=== PATIENT | female | born 1950 | race African-American/Black ===

== ENCOUNTER 2017-01-02 07:34 | Emergency (ER) | payer BC ==
[~2017-01-02] VITALS: Ht 167.6 cm; Wt 85.0 kg
[~2017-01-02 07:34] MED LIST: ALPR0.5T6; ICNCLON; METO100T; NIFE90TA4
[2017-01-02 07:41] VITALS: Ht 167.6 cm; Wt 85.0 kg
--- NOTE | 2017-01-02 07:53 | ERD ---
ER Documentation Chief Complaint Date/Time DATE: 01/02/17 TIME: 07:52 Chief Complaint Complains of left finger pain with swelling x 3 days HPI 66-year-old female who presents to the emergency department for left index finger pain and swelling. Stated that she is not sure if she injured it. Stated that she recalled that she out all of her weight on it while she was sleeping 3 days ago. Denies headache, loss of consciousness, dizziness, blurry vision, changes in vision, photophobia, facial pain, ear pain, throat pain, difficulty swallowing, neck pain, shoulder pain, chest pain, cough, hemoptysis, abdominal pain, back pain, loss of appetite, nausea, vomiting, hematochezia, diarrhea, constipation, urinary symptoms, , the possibility of being , bladder and bowel incontinences, numbness or tingling sensation, insect bite, direct injury , direct trauma, difficulty walking, recent travel, recent exposure to illness, recent antibiotic use in the last 3 months, fever, chills. Allergy: No known drug allergies. PMH: Hypertension. Denies. Family medical history: Medications: Clonidine. Nifedipine. Surgery: . 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 Right-handed. Denies smoking, use of alcohol, use of illegal drugs. Not exposed to secondhand smoking. ROS All systems reviewed and are negative except as per history of present illness. Medications Home Meds Active Scripts Cephalexin* (Keflex*) 500 Mg Capsule, 500 MG PO TID for 5 Days, CAP Prov:EMILY BRYANT F 01/02/17 Tramadol HCl (Tramadol HCl) 50 Mg Tablet, 50 MG PO Q4 Y for PAIN, #15 TAB Prov:SEVEROILABANKLAR F 01/02/17 Reported Medications Nifedipine (Nifediac Cc) 90 Mg Tablet.sa 03/23/10 Metoprolol (Lopressor) 100 Mg Tablet 03/23/10 Clonidine (Clonidine (Pediatric Compound)) 0.1 Mg/Ml Susp 03/23/10 Alprazolam* (Alprazolam*) 0.5 Mg Tablet 03/23/10 Allergies Allergies: Coded Allergies: No Known Allergy (Verified , 11/18/09) PMhx/Soc History of Surgery: Yes (EYE SX) Anesthesia Reaction: No Hx Neurological Disorder: No Hx Respiratory Disorders: No Hx Cardiac Disorders: Yes (htn) Hx Psychiatric Problems: No Hx Miscellaneous Medical Probl: No Hx Alcohol Use: No Hx Substance Use: No Hx Tobacco Use: No Physical Exam Vitals Vital Signs Date Time Temp Pulse Resp B/P Pulse Ox O2 Delivery O2 Flow Rate FiO2 01/02/17 07:41 97.2 102 20 173/84 98 Physical Exam CONSTITUTIONAL: Well-appearing; well-nourished; in no apparent distress. HEAD: Normocephalic; atraumatic. EYES: Conjunctiva clear, sclera non-icteric, EOM intact. PERRL Ears: Hearing intact. EACs clear, TMs non-bulging, non-inflamed, translucent & mobile, ossicles normal appearance, No obstructions, no erythema, no discharges Nose: No obstructions. No polyps. No external lesions. Mucosa non-inflamed. No external lesions, septum and turbinates normal. No rhinorrhea. No discharges. Frontal sinus is non-tender to palpation. Maxillary sinus is non-tender to palpation. MOUTH: Moist mucous membranes, no lesion, no obstructions, no vesicles, no thrush, patent airway Throat: Uvula in midline. Right tonsil is +1 with no erythema, no exudate. Left tonsil is +1 with no erythema, no exudate. Tolerating secretions well. Good gag reflex. Patent airway. Neck: Supple, without lesions, bruits, or adenopathy. No mass. Thyroid non- enlarged and non-tender to palpation. CHEST: Symmetrical chest. Respirations even and not labored. No retractions noted. CARDIOVASCULAR: Normal S1, S2. RRR. No murmurs, gallops. RESPIRATORY: Normal chest excursion with respiration; breath sounds clear and equal bilaterally; no wheezes, rhonchi, or rales. Breathing even and unlabored. Speaking in clear, full, and complete sentences w/ ease. ABDOMEN: Normal bowel sounds normal. Soft, round, non-distended, non-guarding, no tenderness, no rebound, no organomegaly, no masses, no pulsating abdominal mass. No hernia. No peritoneal signs. : No CVA tenderness. BACK: Symmetrical shoulder. Spine is midline without deformity, tenderness. No evidence of trauma or deformity. PELVIS: Stable pelvis. No evidence of trauma or deformity. MUSCULOSKELETAL: Normal gait and station. No misalignment, asymmetry, crepitation, defects, tenderness, masses, effusions, decreased range of motion, instability, atrophy or abnormal strength or tone in the head, neck, spine, ribs , pelvis or extremities except left index finger has tenderness(PIP aspect) to palpation swelling that is warm to touch with no obvious deformity/ discoloration and is good and full function of extension and flexion with a score of 5/5, and there is no evidence of tendon injury. There is no evidence of skin bite. Skin is intact. No neurovascular deficits. Circulation and sensation is intact. No calf tenderness. NEUROVASCULAR: Distal pulses are present. Pedal pulse are present, equal, and normal. Capillary refills are < 2 seconds. NEUROLOGIC: Alert and oriented x4. Speaks full and clear sentences. Cranial Nerves II-XII normal. Sensation to pain, touch, and proprioception normal. Grossly unremarkable. No neurologic deficits. Romberg test is negative. PSYCHOLOGICAL: The patients mood and manner are appropriate. No hallucinations , delusions. Not SI. Not HI. Has the capacity to decide for self SKIN: Normal for age and ethnicity; warm; dry; good turgor; no apparent lesions or exudates. No rashes, hives, discoloration. Intact. Procedures/MDM Examination: Please see physical examination. Disease process, medical treatment was explained to the patient and family member. They verbalized understanding and agreed with the diagnostic tests, medical treatment, and follow-up care. Radiology: X-ray of the right index finger Impression: Soft tissue swelling at the PIP joint. No osseous abnormalities identified Treatment: Finger splint. Re-evaluation: No neurovascular deficits prior to and after the application of finger splint. Denies headache, dizziness, blurry vision, neck pain, shoulder pain, chest pain, back pain, abdominal pain. No nausea and vomiting. No neurological deficits. Consultation: None. Differential diagnosis: Fracture versus dislocation versus contusion versus sprain versus cellulitis Medical decision makin-year-old female who presents to the emergency department for left index finger pain and swelling. Stated that she is not sure if she injured it. Stated that she recalled that she out all of her weight on it while she was sleeping 3 days ago. Patient's complaint, patient's history about her complaint, my physical findings, diagnostic test results, my reevaluation are consistent with final diagnosis of finger injury, pain of the finger, cellulitis. Medications prescribed are the following: Keflex. Tramadol. Patient and family member are made aware of the side effects and adverse reactions of the medications prescribed. Instructed on when to seek emergent and medical attention in case allergic/anaphylactic reactions or severe side effects and or adverse reactions to medications. Patient and family member verbalized understanding. Patient instructed Instructed to follow-up with his PCP in 24-48 hours. PCP to refer patient on orthopedic doctor if symptoms get worse. Instructed to Call 911 for chest pain, shortness of breath. Advised to come back here in ED as soon as possible for severity of symptoms which includes but not limited to: any new symptoms; shortness of breath/difficulty of breathing; cardiovascular changes; severe gastrointestinal symptoms; signs and symptoms of bleeding and or infection; signs of compartment syndrome/neurovascular changes; neurological changes/deficits. Patient and family member verbalized understanding. Upon discharge, patient is alert and oriented x 4, speaks full and clear sentences, denies pain, has no neurological deficits, has no neurovascular deficits, difficulty of breathing. Breathing even and unlabored. Lung sounds are clear to auscultation. Not in distress. Appears comfortable. Ambulatory with steady gait. Appears satisfied with care provided here in ED. Departure Diagnosis: Primary Impression: Pain of finger Additional Impressions: Finger injury Cellulitis Condition: Stable Additional Instructions: Patient instructed Instructed to follow-up with his PCP in 24-48 hours. PCP to refer patient on orthopedic doctor if symptoms get worse. Instructed to Call 911 for chest pain, shortness of breath. Advised to come back here in ED as soon as possible for severity of symptoms which includes but not limited to: any new symptoms; shortness of breath/difficulty of breathing; cardiovascular changes; severe gastrointestinal symptoms; signs and symptoms of bleeding and or infection; signs of compartment syndrome/neurovascular changes; neurological changes/deficits. Patient and family member verbalized understanding. EMILY BRYANT January 02, 2017 07:53 EMILY BRYANT January 02, 2017 07:53
--- NOTE | 2017-01-02 08:34 | RADRPT ---
PROCEDURE: XR left second finger(s). CLINICAL INDICATION: Finger pain TECHNIQUE: Three views are available for review. COMPARISON: No prior studies are available for comparison. FINDINGS: There is soft tissue swelling at the PIP joint. There is normal mineralization, architecture and alignment. No fracture or osseous lesion is identi fied. The joints are unremarkable. IMPRESSION: Soft tissue swelling at the PIP joint No osseous abnormalities identified RPTAT: HGDB .Alonzo Yen MD, MD Date Time Electronically viewed and signed by .Alonzo Yen MD, on 01/02/2017 08:33 .B/
[2017-01-02] MEDS ORDERED: TRAM50TA2 PO (09:54)
[2017-01-02] MEDS ORDERED: CEPH-443 PO (09:55)
== END 2017-01-02 10:02 | disposition home or self-care (01) ==
LOC: FTE 07:34
DX: S69.92XA Unspecified injury of left wrist, hand and finger(s), initial encounter (principal); L03.012 Cellulitis of left finger; I10 Essential (primary) hypertension; X58.XXXA Exposure to other specified factors, initial encounter; Y92.9 Unspecified place or not applicable
CPT/HCPCS: 73140

== ENCOUNTER 2017-08-31 07:36 | Emergency (ER) | END 2017-08-31 09:07 | disposition home or self-care (01) ==

== ENCOUNTER → 2017-08-31 | Outpatient (CLI) | END | disposition home or self-care (01) ==

== ENCOUNTER → 2017-09-04 | Outpatient (CLI) | END | disposition home or self-care (01) ==

== ENCOUNTER → 2017-09-12 | Outpatient (CLI) | END | disposition home or self-care (01) ==

== ENCOUNTER → 2017-10-11 | Outpatient (CLI) | END | disposition home or self-care (01) ==

== ENCOUNTER → 2017-11-03 | Outpatient (CLI) | END | disposition home or self-care (01) ==

== ENCOUNTER → 2017-11-23 | Outpatient (CLI) | END | disposition home or self-care (01) ==

== ENCOUNTER → 2018-01-31 | Outpatient (CLI) | END | disposition home or self-care (01) ==

== ENCOUNTER → 2018-04-04 | Outpatient (CLI) | END | disposition home or self-care (01) ==

== ENCOUNTER → 2018-06-27 | Outpatient (CLI) | END | disposition home or self-care (01) ==

== ENCOUNTER → 2018-08-15 | Outpatient (CLI) | payer BC ==
[~2018-08-15] MED LIST changes: +CEPH-443 PO; +HYDR-4011 PO; +NAPR-985 PO; +PRED20TA PO; +TRAM50TA2 PO
== END | disposition home or self-care (01) ==
LOC: LAB 08:43
PROVIDERS: ATTEND Specialist
DX: M06.9 Rheumatoid arthritis, unspecified (principal); M10.9 Gout, unspecified
CPT/HCPCS: 80053; 84560; 85025; 85651; 86140

== ENCOUNTER → 2018-08-31 | Outpatient (CLI) | payer BC | END | disposition home or self-care (01) | LOC: LAB 14:27 | PROVIDERS: ATTEND Nurse Practitioner Family | DX: M06.9 Rheumatoid arthritis, unspecified (principal); E79.0 Hyperuricemia without signs of inflammatory arthritis and tophaceous disease | CPT/HCPCS: 80053; 84560; 85025; 85651; 86140 ==

== ENCOUNTER 2018-10-04 14:01 | Emergency (ER) | payer BC ==
[~2018-10-04] VITALS: Ht 175.3 cm; Wt 87.2 kg
[2018-10-04 14:09] VITALS: Ht 175.3 cm; Wt 87.2 kg
[2018-10-04] MEDS ORDERED: ONDANSETRON 4 MG INJ IV STA (14:28)
[2018-10-04] MEDS ORDERED: morphine 4 MG/ML VIAL IV STA (14:28)
[2018-10-04] MEDS ORDERED: SOD CHLORIDE 0.9% 1,000 ML IV STA (14:28)
[2018-10-04] MEDS ORDERED: LIDOCAINE/MYLANTA 40 ML BTL PO STA (15:07)
[2018-10-04] MEDS ORDERED: FAMOTIDINE 20 MG TAB PO STA (15:07)
[2018-10-04] MEDS ORDERED: ONDA4TAB14 PO (15:45)
--- NOTE | 2018-10-04 15:45 | ERD ---
ER Documentation Chief Complaint Chief Complaint Complans of severe abd pain HPI 68-year-old female with a history of hypertension presenting with complaints of upper abdominal pain that just started prior to arrival. She states that she ate oatmeal then fried chicken. After that she started vomiting and having aching upper abdominal pain, about 8 out of 10, nonradiating. No associated diarrhea, fever, chills. No associated chest pain or shortness of breath. The pain is constant, with no alleviating or exacerbating factors. ROS All systems reviewed and are negative except as per history of present illness. Medications Home Meds Active Scripts Ondansetron (Ondansetron Odt) 4 Mg Tab.rapdis, 4 MG PO Q6H PRN for NAUSEA AND/OR VOMITING, #10 TAB Prov:ARSEN HOLBROOK MD 10/04/18 Naproxen* (Naprosyn*) 500 Mg Tablet, 500 MG PO BID PRN for PAIN AND/OR INFLAMMATION, #20 TAB Prov:ORTIZ BLACKWELL PA-C 08/31/17 Hydrocodone/Acetaminophen ([place] 5-325 Tablet) 1 Each Tablet, 1 TAB PO Q6H PRN for PAIN, #7 TAB Prov:ORTIZ BLACKWELL PA-C 08/31/17 Prednisone* (Prednisone*) 20 Mg Tab, 40 MG PO DAILY for 4 Days, #8 TAB Prov:ORTIZ BLACKWELL PA-C 08/31/17 Cephalexin* (Keflex*) 500 Mg Capsule, 500 MG PO TID for 5 Days, CAP Prov:EMILY BRYANT 01/02/17 Tramadol HCl (Tramadol HCl) 50 Mg Tablet, 50 MG PO Q4 PRN for PAIN, #15 TAB Prov:EMILY BRYANT F 01/02/17 Reported Medications Nifedipine (Nifediac Cc) 90 Mg Tablet.sa 03/23/10 Metoprolol (Lopressor) 100 Mg Tablet 03/23/10 Clonidine (Clonidine (Pediatric Compound)) 0.1 Mg/Ml Susp 03/23/10 Alprazolam* (Alprazolam*) 0.5 Mg Tablet 03/23/10 Allergies Allergies: Coded Allergies: No Known Allergy (Verified , 08/31/17) PMhx/Soc History of Surgery: Yes (CATARACT EYE SX, ) Anesthesia Reaction: No Hx Neurological Disorder: No Hx Respiratory Disorders: No Hx Cardiac Disorders: Yes (HTN) Hx Psychiatric Problems: No Hx Miscellaneous Medical Probl: Yes (rheumatoid arthritis, gout) Hx Alcohol Use: No Hx Substance Use: No Hx Tobacco Use: No Smoking Status: Never smoker FmHx Family History: No diabetes Physical Exam Vitals Vital Signs Date Temp Pulse Resp B/P (MAP) Pulse Ox O2 O2 Flow FiO2 Time Delivery Rate 10/04/18 77 20 142/100 99 Room Air 16:02 (114) 10/04/18 88 20 137/74 100 Room Air 14:46 (95) 10/04/18 97.2 78 20 132/73 98 14:09 (92) Physical Exam Const: Mild distress secondary to pain, nontoxic Head: Atraumatic Eyes: Normal Conjunctiva ENT: Normal External Ears, Nose and Mouth. Neck: Full range of motion. No meningismus. Resp: Clear to auscultation bilaterally Cardio: Regular rate and rhythm, no murmurs Abd: Soft, epigastric and right upper quadrant tender to palpation with no rebound or guarding. non distended. Normal bowel sounds Skin: No petechiae or rashes Back: No midline or flank tenderness Ext: No cyanosis, or edema Neur: Awake and alert Psych: Normal Mood and Affect Result Diagram: 10/04/18 1435 10/04/18 1435 Results 24 hrs Laboratory Tests Test 10/04/18 14:35 White Blood Count 5.6 10^3/ul Red Blood Count 3.55 10^6/ul Hemoglobin 10.0 g/dl Hematocrit 32.1 % Mean Corpuscular Volume 90.4 fl Mean Corpuscular Hemoglobin 28.2 pg Mean Corpuscular Hemoglobin Concent 31.2 g/dl Red Cell Distribution Width 22.5 % Platelet Count 167 10^3/UL Mean Platelet Volume 11.5 fl Immature Granulocytes % 1.100 % Neutrophils % 59.3 % Lymphocytes % 25.4 % Monocytes % 12.6 % Eosinophils % 1.1 % Basophils % 0.5 % Nucleated Red Blood Cells % 0.4 /100WBC Immature Granulocytes # 0.060 10^3/ul Neutrophils # 3.3 10^3/ul Lymphocytes # 1.4 10^3/ul Monocytes # 0.7 10^3/ul Eosinophils # 0.1 10^3/ul Basophils # 0.0 10^3/ul Nucleated Red Blood Cells # 0.0 10^3/ul Sodium Level 138 mmol/L Potassium Level 3.3 mmol/L Chloride Level 103 mmol/L Carbon Dioxide Level 26 mmol/L Anion Gap 9 Blood Urea Nitrogen 11 mg/dl Creatinine 0.79 mg/dl Est Glomerular Filtrat Rate mL/min > 60 mL/min Glucose Level 118 mg/dl Calcium Level 9.4 mg/dl Total Bilirubin 0.2 mg/dl Direct Bilirubin 0.00 mg/dl Indirect Bilirubin 0.2 mg/dl Aspartate Amino Transf (AST/SGOT) 223 IU/L Alanine Aminotransferase (ALT/SGPT) 69 IU/L Alkaline Phosphatase 114 IU/L Total Protein 7.3 g/dl Albumin 4.1 g/dl Globulin 3.20 g/dl Albumin/Globulin Ratio 1.28 Lipase 127 U/L Current Medications Medications Dose Sig/[place] Start Time Status Last (Trade) Ordered Route PRN Stop Time Admin Dose Reason Admin Sodium 1,000 ml @ Q1H STAT 10/04/18 DC 10/04/18 Chloride 1,000 mls/hr IV 14:28 14:40 10/04/18 15:27 Morphine 4 mg ONCE STAT 10/04/18 DC 10/04/18 Sulfate IV 14:28 14:40 (morphine) 10/04/18 14:29 Ondansetron 4 mg ONCE STAT 10/04/18 DC 10/04/18 HCl (Zofran IV 14:28 14:40 Inj) 10/04/18 14:29 Famotidine 20 mg ONCE STAT 10/04/18 DC 10/04/18 (Pepcid) PO 15:07 15:16 10/04/18 15:08 40 ml ONCE STAT 10/04/18 DC 10/04/18 Miscellaneous PO 15:07 15:16 Medication 10/04/18 15:08 (Gi Cocktail (2)) Procedures/MDM EMERGENT LABS AND DIAGNOSTIC STUDIES: Lab Results above were reviewed and interpreted by me. CBC: no anemia or evidence of infection CMP: Mild hypokalemia. Isolated elevated AST. All other liver studies normal. No evidence of renal failure, hypoglycemia Lipase: no evidence of pancreatitis 12-lead EKG was interpreted by Ovidio Holbrook MD: Normal Sinus Rhythm Normal axis Normal intervals No acute ST or T wave changes suggestive of acute ischemia or STEMI. Radiology Results as interpreted by Radiology below were reviewed by Igor Holbrook MD: US Gallbladder: IMPRESSION: 1. No evidence of cholelithiasis or acute cholecystitis. 2. Two gallbladder wall polyps measuring up to 7.7 mm. 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 3. Common bile duct is mildly dilated measuring 8.7 mm. No obvious choledocholithiasis seen by ultrasound. If there is high clinical suspicion for choledocholithiasis recommend MRCP .Austin Ga MD, MD Date Time Electronically viewed and signed by .Austin Ga MD, MD on 10/04/2018 15:13 Initial Nursing notes reviewed. Previous Medical Records requested via the Electronic Health Record. EMERGENCY DEPARTMENT COURSE / MEDICAL DECISION MAKING: Patient is presenting with upper abdominal pain and vomiting. Differential includes but is not limited to biliary colic, biliary obstruction, acute cholecystitis, pancreatitis, hepatitis, lower lobe pneumonia, gastritis, colitis. Doubt cardiac pathology, aortic dissection, ureterolithiasis, pyelonephritis. Labs were ordered to evaluate for above and were remarkable for mild hypokalemia and elevated AST.Ultrasound of the abdomen ordered to evaluate gallbladder and showed a dilated CBD but no evidence of cholecystitis. I reevaluated the patient after IV fluids, pain medications, and antiemetics were given. Repeat abdominal exam was completely benign. At this point, I discussed doing an MRCP versus close outpatient follow-up. Strict return precautions were given. She was advised to return in the next 8-12 hours if any of her pain worsens. It is likely that she just had food poisoning. I gave her a prescription for Zofran. Patient understands discharge plan and will return for any worsening symptoms. Patient's blood pressure was elevated (>120/80) but appears stable without evidence of hypertensive emergency or urgency. The patient was counseled about the risks of hypertension and urged to pursue outpatient monitoring and therapy within a week with their primary care physician. Departure Diagnosis: Primary Impression: Upper abdominal pain Additional Impression: Nausea and vomiting Vomiting type: unspecified Vomiting Intractability: non-intractable Qualified Codes: R11.2 - Nausea with vomiting, unspecified Condition: Stable Patient Instructions: Nausea and Vomiting-Adult, Abdominal Pain, Unknown Cause, (Female) Additional Instructions: If your pain worsens within the next 8-12 hours, return to the ER immediately. ARSEN HOLBROOK MD Oct 04, 2018 15:45
[2018-10-04 16:02] VITALS: BP 142/100; PULSE 77; RESP 20
== END 2018-10-04 16:02 | disposition home or self-care (01) ==
LOC: E/R 14:01
DX: R10.10 Upper abdominal pain, unspecified (principal); I10 Essential (primary) hypertension; R11.2 Nausea with vomiting, unspecified
CPT/HCPCS: 36415; 76705; 80053; 83690; 85025; 93005; 96374; 96375; 99285; J2270; J2405; J7030

== ENCOUNTER → 2018-10-12 | Outpatient (CLI) | payer BC ==
[~2018-10-12] MED LIST changes: +ONDA4TAB14 PO
== END | disposition home or self-care (01) ==
LOC: LAB 07:27
PROVIDERS: ATTEND Internal Medicine
DX: M06.9 Rheumatoid arthritis, unspecified (principal); R53.83 Other fatigue; D64.9 Anemia, unspecified; E78.5 Hyperlipidemia, unspecified
CPT/HCPCS: 80053; 80061; 82306; 82607; 82728; 82746; 83540; 84436; 84443; 84480; 85025; 86704; 86709; 86803; 87340

== ENCOUNTER → 2018-11-02 | Outpatient (CLI) | payer BC | END | disposition home or self-care (01) | LOC: RAD 12:55 | PROVIDERS: ATTEND Internal Medicine | DX: M25.561 Pain in right knee (principal) | CPT/HCPCS: 73562 ==

== ENCOUNTER → 2018-11-02 | Outpatient (CLI) | payer BC | END | disposition home or self-care (01) | LOC: LAB 12:59 | PROVIDERS: ATTEND Nurse Practitioner Family | DX: M06.9 Rheumatoid arthritis, unspecified (principal) | CPT/HCPCS: 80053; 84560; 85025; 85651; 86140 ==

== ENCOUNTER → 2018-12-14 | Outpatient (CLI) | payer BC | END | disposition home or self-care (01) | LOC: U/S 13:39 | PROVIDERS: ATTEND Internal Medicine | DX: M71.21 Synovial cyst of popliteal space [Baker], right knee (principal); M25.561 Pain in right knee ==

== ENCOUNTER → 2019-01-18 | Outpatient (CLI) | payer BC ==
[~2019-01-18] MED LIST changes: +ATOR40TA68 PO
== END | disposition home or self-care (01) ==
LOC: LAB 08:03
PROVIDERS: ATTEND Internal Medicine Rheumatology
DX: M06.9 Rheumatoid arthritis, unspecified (principal)
CPT/HCPCS: 80053; 85025; 85651; 86140

== ENCOUNTER 2019-01-23 10:07 | Day surgery (SDC) | payer BC ==
[~2019-01-23] VITALS: Ht 170.2 cm; Wt 84.8 kg
[2019-01-23] VITALS (8 sets, daily range): BP systolic 98–129; BP diastolic 56–70; PULSE 74–83; RESP 12–21; Ht 170.2 cm; Wt 84.8 kg
[~2019-01-23 10:07] MED LIST changes: -ATOR40TA68 PO
[2019-01-23] MEDS ORDERED: ATOR40TA68 PO (10:40)
--- NOTE | 2019-01-23 11:30 | PREAC ---
Date/Time of Note Date/Time of Note DATE: 01/23/19 TIME: 11:29 Anesthesia Eval and Record Evaluation Time Pre-Procedure Interview DATE: 01/23/19 TIME: 11:29 Age 68 Sex female NPO: 8 hrs Preoperative diagnosis Colon screening Planned procedure Colonoscopy Past Medical History Past Medical History: Includes Cardio: HTN, Dyslipidemia Heme: Anemia Surgery & Anesthesia Issues No known issue Meds Anticoagulation: No Beta Mohit within 24 hr: Yes Reported Medications Atorvastatin* (Atorvastatin*) 40 Mg Tablet, 40 MG PO QHS, #30 TAB 01/23/19 Nifedipine (Nifediac Cc) 90 Mg Tablet.sa 03/23/10 Metoprolol (Lopressor) 100 Mg Tablet 03/23/10 Clonidine (Clonidine (Pediatric Compound)) 0.1 Mg/Ml Susp 03/23/10 Meds reviewed: Yes Allergies Coded Allergies: No Known Allergy (Verified , 08/31/17) Allergies Reviewed: Yes Labs/Studies Labs Reviewed: Reviewed by anesthesiologist test: N/A Pre-procedure Exam Airway: Adequate mouth opening Mallampati: Mallampati II Teeth: Normal Lung: Normal Heart: Normal ASA Physical Status ASA physical status: 2 Emergency: None Planned Anesthetic General/MAC: MAC Planned Pain Management Parenteral pain med Pre-operative Attestations Prior to commencing anesthesia and surgery, the patient was re-evaluated, there was verification of: *The patient's identity *The results of appropriate recent lab work and preoperative vital signs *The above evaluation not changing prior to induction *Anesthetic plan, risk benefits, alternative and complications discussed with patient/family; questions answered; patient/family understands, accepts and wishes to proceed. CHELSIE CHAPMAN MD Jan 23, 2019 11:30
[2019-01-23] MEDS ORDERED: PROPOFOL 20 ML ONE ×2 (11:33→12:12)
--- NOTE | 2019-01-23 12:48 | PAC ---
Date/Time of Note Date/Time of Note DATE: 01/23/19 TIME: 12:48 Post-Anesthesia Notes Post-Anesthesia Note Last documented vital signs Vital Signs Date Temp Pulse Resp B/P (MAP) Pulse Ox O2 O2 Flow FiO2 Time Delivery Rate 01/23/19 97.9 76 20 115/57 96 Room Air 12:30 (76) Activity: WNL Respiratory function: WNL Cardiovascular function: WNL Mental status: Baseline Pain reasonably controlled: Yes Hydration appropriate: Yes Nausea/Vomiting absent: Yes CHELSIE CHAPMAN MD Jan 23, 2019 12:48
== END 2019-01-23 12:34 | disposition home or self-care (01) ==
LOC: GIL 10:07
PROVIDERS: ATTEND Internal Medicine Gastroenterology
DX: Z12.11 Encounter for screening for malignant neoplasm of colon (principal); D12.5 Benign neoplasm of sigmoid colon; K57.30 Diverticulosis of large intestine without perforation or abscess without bleeding; K64.8 Other hemorrhoids
CPT/HCPCS: 88305

== ENCOUNTER → 2019-03-08 | Outpatient (CLI) | payer BC ==
[~2019-03-08] MED LIST changes: -ALPR0.5T6; +ATOR40TA68 PO; -CEPH-443 PO; -HYDR-4011 PO; -NAPR-985 PO; -ONDA4TAB14 PO; -PRED20TA PO; -TRAM50TA2 PO
== END | disposition home or self-care (01) ==
LOC: LAB 12:42
PROVIDERS: ATTEND Internal Medicine Rheumatology
DX: M06.9 Rheumatoid arthritis, unspecified (principal)
CPT/HCPCS: 80053; 85025; 85651; 86140

== ENCOUNTER → 2019-03-22 | Outpatient (CLI) | payer BC | END | disposition home or self-care (01) | LOC: RAD 09:19 | PROVIDERS: ATTEND Internal Medicine Rheumatology | DX: M06.872 Other specified rheumatoid arthritis, left ankle and foot (principal); M06.871 Other specified rheumatoid arthritis, right ankle and foot; M06.862 Other specified rheumatoid arthritis, left knee; M06.861 Other specified rheumatoid arthritis, right knee | CPT/HCPCS: 73610; 73630 ==

== ENCOUNTER → 2019-04-26 | Outpatient (CLI) | payer BC | END | disposition home or self-care (01) | LOC: LAB 11:36 | PROVIDERS: ATTEND Internal Medicine Rheumatology | DX: M06.9 Rheumatoid arthritis, unspecified (principal) | CPT/HCPCS: 80053; 82306; 85025; 85651; 86140 ==